=== PATIENT | male | born 1995 | race African-American/Black ===

== ENCOUNTER 2021-11-09 19:19 | Emergency (ER) | payer OTHER ==
[~2021-11-09] VITALS: Ht 175.3 cm; Wt 77.0 kg
[2021-11-09] MEDS ORDERED: ONDANSETRON HCL 4MG/2ML INJ IV STA (23:38)
[2021-11-09] MEDS ORDERED: FAMOTIDINE 20MG/2ML VIAL IV STA (23:38)
[2021-11-09] MEDS ORDERED: SODIUM CHLORIDE 0.9% 1,000 ML IV ONE (23:45)
[2021-11-10 00:24] LABS: CLARITY URINE CLEAR (CLEAR); COLOR URINE YELLOW (YELLOW); KETONES URINE 3+ (NEGATIVE); LEUKOCYTE ESTERASE URINE NEGATIVE (NEGATIVE); NITRITE URINE NEGATIVE (NEGATIVE); OCCULT BLOOD URINE NEGATIVE (NEGATIVE); PH URINE 5.5 (4.5-8.0); PROTEIN URINE NEGATIVE (NEGATIVE); SPECIFIC GRAVITY URINE 1.037 (1.005-1.030); UROBILINOGEN URINE 0.2 E.U./dL (0.2-1.0)
[2021-11-10 00:37] LABS: BASOPHILS % 0.7 % (0.0-2.0); HEMATOCRIT. 46.5 % (42.0-52.0); HEMOGLOBIN. 15.6 g/dL (14.0-18.0); LYMPHOCYTES % 23.1 % (20.0-50.0); MEAN CORPUSCULAR HEMOGLOBIN 32.1 pg (28.0-32.0); MEAN CORPUSCULAR VOLUME 95.7 fL (80.0-94.0); MEAN PLATELET VOLUME 10.9 fl (7.4-10.4); NEUTROPHILS % 73.2 % (40.0-76.0); PLATELET 234 x1000/uL (130-400); RED BLOOD CELL COUNT 4.86 mill/uL (4.7-6.1); RED CELL DISTRIBUTION WIDTH 13.5 % (11.6-14.6)
[2021-11-10 03:07] LABS: BG BASE EXCESS -9.5 mmol/L (-2.0-2.0); BG CARBOXYHEMOGLOBIN 0.5 % (0.5-1.5); BG DEOXYHEMOGLOBIN 3.5 % (0.0-5.0); BG FRACTION INSPIRED OXYGEN 21; BG METHEMOGLOBIN 0.2 % (0.0-1.5); BG OXYGEN SATURATION 96.5 % (92.0-98.5); BG OXYHEMOGLOBIN 95.8 % (94.0-97.0); BG PCO2 29.3 mmHg (35.0-45.0); BG PH 7.326 (7.350-7.450); BG PO2 87.8 mmHg (75.0-100.0); BG SAMPLE SITE RIGHT RADIAL; BG TOTAL HEMOGLOBIN 14.2 g/dL (12.0-18.0)
[2021-11-10] MEDS ORDERED: SODIUM CHLORIDE 0.9% 1,000 ML IV ONE ×2 (03:45→05:45)
[2021-11-10 03:48] LABS: CHLORIDE 108 mEq/L (98-107)
[2021-11-10 03:56] LABS: BETA HYDROXYBUTYRATE 1.5 mMol/L (0.0-0.3); ETHANOL BLOOD 72 mg/dL
[2021-11-10 04:54] LABS: *AMPHETAMINES SCREEN URINE NEGATIVE (NEGATIVE); *BARBITURATES SCREEN URINE NEGATIVE (NEGATIVE); *BENZODIAZEPINES SCREEN URINE NEGATIVE (NEGATIVE); *COCAINE SCREEN URINE NEGATIVE (NEGATIVE); CANNABINOID URINE SCREEN PRESUMTIVE POSITIVE (NEGATIVE); METHADONE URINE SCREEN NEGATIVE (NEGATIVE); OPIATES URINE SCREEN NEGATIVE (NEGATIVE); PHENCYCLIDINE URINE SCREEN NEGATIVE (NEGATIVE)
[2021-11-10 06:29] LABS: BETA HYDROXYBUTYRATE 1.4 mMol/L (0.0-0.3)
[2021-11-10 09:50] VITALS: BP 108/61
== END 2021-11-10 10:01 | disposition short-term general hospital (02) ==
LOC: ER 19:19
DX: E11.10 Type 2 diabetes mellitus with ketoacidosis without coma (principal); F10.129 Alcohol abuse with intoxication, unspecified; Y90.3 Blood alcohol level of 60-79 mg/100 ml; Z20.822 Contact with and (suspected) exposure to COVID-19; Z90.49 Acquired absence of other specified parts of digestive tract
CPT/HCPCS: 36415; 36600; 80053; 80305; 80320; 81003; 82010; 82375; 82805; 82962; 83605; 83690; 85025; 87426; 96361; 96374; 96375; 99291; C9803; J2405; J3490; J7030; G0480